=== PATIENT | female | born 1950 | race Caucasian/White ===

== ENCOUNTER 2017-03-10 15:51 | Observation (INO) | payer MEDICARE, OTHER ==
[~2017-03-10] VITALS: Ht 162.6 cm; Wt 77.7 kg
[2017-03-10 18:14] LABS: BUN/CREATININE RATIO 26 (0-10)
[2017-03-10 19:21] LABS: HEMOGLOBIN 12.3 gm/dl (12.3-15.3); RED BLOOD COUNT 4.2 M/UL (4.00-5.10); WHITE BLOOD COUNT 8.6 K/UL (4.5-11.0)
[2017-03-11] MEDS ORDERED: TELMISARTAN-HC1 EAC1 PO (02:17)
[2017-03-11] MEDS ORDERED: GLUCOPHAGE1000 MG PO (02:17)
[2017-03-11] MEDS ORDERED: GLIPIZIDE ER5 MG PO (02:18)
[2017-03-11] MEDS ORDERED: NEXIUM20 MG PO (02:18)
[2017-03-11] MEDS ORDERED: CRANBERRY PLUS1 EAC1 PO (02:19)
[2017-03-11] MEDS ORDERED: CALCIUM + VITA1 EACH PO (02:20)
[2017-03-11] MEDS ORDERED: FISH OIL 1,2001 EAC1 PO (02:21)
[2017-03-11] MEDS ORDERED: D3 DOTS2000 UNIT PO (02:22)
[2017-03-11] MEDS ORDERED: ONE DAILY FOR1 EAC2 PO (02:23)
[2017-03-11] MEDS ORDERED: DUREZOL5 ML OP (02:24)
[2017-03-11] MEDS ORDERED: CRESTOR20 MG PO (02:26)
[2017-03-11 06:11] LABS: HEMOGLOBIN 12.2 gm/dl (12.3-15.3); RED BLOOD COUNT 4.21 M/UL (4.00-5.10); WHITE BLOOD COUNT 9.1 K/UL (4.5-11.0)
[2017-03-11 06:26] LABS: BUN/CREATININE RATIO 32 (0-10)
[2017-03-11] MEDS ORDERED: FLONASE 0.05% N16 GM (16:34)
[2017-03-11] MEDS ORDERED: MECLIZINE HCL25 MG PO (16:35)
== END 2017-03-11 18:09 | disposition home or self-care (01) ==
LOC: ER1 15:51 → ZEROF 20:38 → M/S 23:01
PROVIDERS: Internal Medicine; Physician Assistant Medical; ADMIT Emergency Medicine
DX: R42 Dizziness and giddiness (principal); H69.90 Unspecified Eustachian tube disorder, unspecified ear; H92.01 Otalgia, right ear; H93.11 Tinnitus, right ear; I11.9 Hypertensive heart disease without heart failure; E11.9 Type 2 diabetes mellitus without complications; E78.5 Hyperlipidemia, unspecified; Z88.0 Allergy status to penicillin; Z88.2 Allergy status to sulfonamides; Z79.84 Long term (current) use of oral hypoglycemic drugs; Z79.899 Other long term (current) drug therapy; Z87.891 Personal history of nicotine dependence
CPT/HCPCS: 36415; 70450; 70553; 80053; 81001; 82550; 82553; 82962; 83874; 84484; 85025; 93005; 93880; 99283; A9577; G0378; J2405

== ENCOUNTER → 2021-08-06 | Outpatient (CLI) | payer MEDICARE, OTHER ==
[~2021-08-06] MED LIST: CALCIUM + VITA1 EACH PO; CRANBERRY PLUS1 EAC1 PO; CRESTOR20 MG PO; D3 DOTS2000 UNIT PO; DUREZOL5 ML OP; FISH OIL 1,2001 EAC1 PO; FLONASE 0.05% N16 GM; GLIPIZIDE ER5 MG PO; GLUCOPHAGE1000 MG PO; MECLIZINE HCL25 MG PO; NEXIUM20 MG PO; ONE DAILY FOR1 EAC2 PO; TELMISARTAN-HC1 EAC1 PO
== END ==
LOC: MAMO 09:16
DX: Z12.31 Encounter for screening mammogram for malignant neoplasm of breast (principal)
CPT/HCPCS: 77063; 77067

== ENCOUNTER → 2021-11-08 | Outpatient (CLI) | payer MEDICARE, OTHER ==
[~2021-11-08] VITALS: Ht 157.5 cm; Wt 82.1 kg
== END ==
LOC: OPSV 13:35
DX: M80.08XA Age-related osteoporosis with current pathological fracture, vertebra(e), initial encounter for fracture (principal); M85.89 Other specified disorders of bone density and structure, multiple sites; M54.30 Sciatica, unspecified side
CPT/HCPCS: 96365; J3489

== ENCOUNTER → 2022-02-14 | Outpatient (CLI) | payer MEDICARE, OTHER | LOC: CT 14:53 | DX: J35.1 Hypertrophy of tonsils (principal); M50.322 Other cervical disc degeneration at C5-C6 level | CPT/HCPCS: 36415; 70491; 82565; 84520; Q9967 ==

== ENCOUNTER → 2022-04-01 | Outpatient (CLI) | payer MEDICARE, OTHER | LOC: KOH-I 08:54 | DX: J32.9 Chronic sinusitis, unspecified (principal); J34.2 Deviated nasal septum | CPT/HCPCS: 70486 ==